=== PATIENT | female | born 1960 | race Hispanic/Latino ===

== ENCOUNTER → 2020-06-25 | Outpatient (CLI) | payer BC, MEDICARE | END | disposition home or self-care (01) | LOC: SHCH 15:35 | PROVIDERS: ATTEND Internal Medicine Cardiovascular Disease | DX: I10 Essential (primary) hypertension (principal) | CPT/HCPCS: 93306; 93356 ==

== ENCOUNTER → 2020-08-05 | Outpatient (CLI) | payer MEDICARE, BC | END | disposition home or self-care (01) | LOC: SHCH 12:52 | PROVIDERS: ATTEND Internal Medicine Cardiovascular Disease | DX: I65.23 Occlusion and stenosis of bilateral carotid arteries (principal); I73.9 Peripheral vascular disease, unspecified; I10 Essential (primary) hypertension | CPT/HCPCS: 93880; 93925 ==

== ENCOUNTER → 2023-05-23 | Outpatient (CLI) | payer MEDICARE | END | disposition home or self-care (01) | LOC: SHCH 15:40 | PROVIDERS: ATTEND Internal Medicine Cardiovascular Disease | DX: I08.2 Rheumatic disorders of both aortic and tricuspid valves (principal); I27.20 Pulmonary hypertension, unspecified; I25.10 Atherosclerotic heart disease of native coronary artery without angina pectoris | CPT/HCPCS: 93306 ==

== ENCOUNTER 2023-09-15 08:10 | Day surgery (SDC) | payer MEDICARE ==
[2023-09-13 13:28] VITALS: BP 119/57; PULSE 74; RESP 16
[2023-09-13 13:37] LABS: BASOPHILS # (AUTO) 0.05 K/uL (0.00-0.20); BASOPHILS % (AUTO) 0.5 % (0.0-5.0); EOSINOPHILS % (AUTO) 2.1 % (0.0-8.0); HEMATOCRIT 32.6 % (36-48); IMMATURE GRANULOCYTE ABSOLUTE 0.05 K/uL (0-1); LYMPHOCYTES # (AUTO) 0.8 K/uL (1.0-4.8); LYMPHOCYTES % (AUTO) 8.5 % (21.0-51.0); MEAN CORPUSCULAR HEMOGLOBIN 31.1 pg (27.0-33.0); MEAN CORPUSCULAR HGB CONC 31.3 g/dL (32.0-36.0); MEAN CORPUSCULAR VOLUME 99.4 fL (79-99); MONOCYTES # (AUTO) 0.8 K/uL (0.1-1.0); MONOCYTES % (AUTO) 8.6 % (3.0-13.0); NEUTROPHILS # (AUTO) 7.6 K/uL (1.8-7.7); NEUTROPHILS % (AUTO) 79.8 % (40.0-77.0); PLATELET COUNT (AUTO) 301 K/uL (130-400); RED BLOOD CELL COUNT(AUTO) 3.28 MIL/uL (4.00-5.50); RED CELL DISTRIBUTION WIDTH 13.4 % (11.0-15.5); WHITE BLOOD COUNT (AUTO) 9.5 K/uL (4.8-10.8)
[2023-09-13 13:48] LABS: INR 1.01 (0.85-1.15); POTASSIUM 3.9 mmol/L (3.5-5.1); PROTHROMBIN TIME 11.9 SEC (9.6-11.6)
[2023-09-13 13:49] LABS: PARTIAL THROMBOPLASTIN TIME 31.4 SEC (26.3-35.5)
[2023-09-13 13:50] LABS: CREATININE 9.8 mg/dL (0.5-1.0)
[2023-09-13 14:04] LABS: B-TYPE NATRIURETIC PEPTIDE 1690 pg/mL (0-100)
[2023-09-15] VITALS (11 sets, daily range): BP systolic 104–137; BP diastolic 54–71; PULSE 76–87; RESP 14–18
[~2023-09-15] VITALS: Ht 154.9 cm; Wt 46.3 kg
[~2023-09-15 08:10] MED LIST: ASPI-1443 PO; CARV3.12 PO; CINA60TA4 PO; CITA-107 PO; ESOM20CA31 PO; FERR-82 PO; FURO40TA5 PO; INSU100I32 SQ; INSU100V37 SQ; LISI2.5T13 PO; ROSU10TA28 PO; SUCR1TAB2 PO; [UNRECOGNIZED DRUG - CODE] PO
[2023-09-15] MEDS: 0.9%NACL 1000ML 1,000 ML IV ONE (09:23)
[2023-09-15] MEDS ORDERED: MEPERIDINE-PF 25 MG/ML SYG ONE ×2 (14:25→15:01)
[2023-09-15] MEDS ORDERED: LIDOCAINE HCL 400MG/20ML VIAL ONE (14:25)
[2023-09-15] MEDS ORDERED: SODIUM BICARB 50MEQ 50ML VIAL 50 ML ONE (14:25)
[2023-09-15] MEDS ORDERED: IOHEXOL-350 50ML VIAL IV ONE (14:26)
[2023-09-15] MEDS ORDERED: HEPARIN 10,000 UNIT/10ML (1,000 UNIT/ML) VIAL ONE (14:26)
[2023-09-15] MEDS ORDERED: IOHEXOL-350 75 ML VIAL IV ONE (14:26)
[2023-09-15] MEDS ORDERED: MIDAZOLAM HCL 1 MG/ML 2ML VIAL ONE ×2 (14:26→15:01)
[2023-09-15] MEDS ORDERED: IOHEXOL 350 MG/ML 100ML INFUS..BTL IV ONE (14:26)
[2023-09-15] MEDS ORDERED: NITROGLYCERIN 50MG VIAL ONE (14:42)
[2023-09-15] MEDS ORDERED: DEXTROSE 50%-WATER 50 ML DISP.SYRIN IV PRN (16:00)
[2023-09-15] MEDS ORDERED: 0.9%NACL 10ML VIAL IVP SCH (16:00)
[2023-09-15] MEDS ORDERED: INSULIN HUMULIN R 100 UNIT/ML 3ML SQ SCH (16:30)
== END 2023-09-15 21:05 | disposition home or self-care (01) ==
LOC: DAH 08:10
PROVIDERS: ATTEND Internal Medicine Cardiovascular Disease
DX: I25.119 Atherosclerotic heart disease of native coronary artery with unspecified angina pectoris (principal); I25.5 Ischemic cardiomyopathy; T82.855A Stenosis of coronary artery stent, initial encounter; I73.9 Peripheral vascular disease, unspecified; I50.43 Acute on chronic combined systolic (congestive) and diastolic (congestive) heart failure; E11.22 Type 2 diabetes mellitus with diabetic chronic kidney disease; E11.319 Type 2 diabetes mellitus with unspecified diabetic retinopathy without macular edema; E11.40 Type 2 diabetes mellitus with diabetic neuropathy, unspecified; E11.21 Type 2 diabetes mellitus with diabetic nephropathy; E11.51 Type 2 diabetes mellitus with diabetic peripheral angiopathy without gangrene; N18.6 End stage renal disease; I25.2 Old myocardial infarction; Z79.01 Long term (current) use of anticoagulants; Z79.899 Other long term (current) drug therapy; Z95.5 Presence of coronary angioplasty implant and graft; Z99.2 Dependence on renal dialysis; Z90.710 Acquired absence of both cervix and uterus; Z98.890 Other specified postprocedural states; Y83.8 Other surgical procedures as the cause of abnormal reaction of the patient, or of later complication, without mention of misadventure at the time of the procedure; Y92.89 Other specified places as the place of occurrence of the external cause
CPT/HCPCS: 80048; 83880; 85025; 85610; 85730; 36415; 71045; 93005; 93458; 82948 ×2; 75630; C1894 ×2; C1760; J3490 ×3; J7030; J2250 ×2; J2175 ×2; J1644; Q9967; A4215; A4222; A4221; A4663; A4216; A4606; Q9965; A4223 ×3; 75625; 75716; 99156; 99157